=== PATIENT | female | born 1980 | race Caucasian/White ===

== ENCOUNTER → 2017-05-06 | Outpatient (CLI) | payer OTHER ==
[~2017-05-06] MED LIST: ALLEGRA60 MG PO; ATIVAN1 MG PO; BENADRYL25 MG PO; BROM-PSEUD-DM118 ML PO; CITALOPRAM HBR20 MG PO; CLARITIN10 MG PO; DEPAKOTE500 MG PO; DIVALPROEX SOD500 MG PO; FLUTICASONE PRO16 GM BOTH NARES; GEODON80 MG PO; INVEGA6 MG PO; LEVOCETIRIZINE D5 MG PO; LEVOTHROID,S0.125 MG PO; LEVOTHYROXINE150 MCG PO; MEDROXYPROGESTER5 MG PO; MORPHINE SULFAT30 M2 PO; NASAL & SINUS D30 MG PO; NYSTATIN-TRIAMC15 G1 TP; OXYCODONE HCL5 MG PO; PAIN RELIEF650 MG PO; PERMETHRIN60 GM TP; TRAMADOL HCL50 MG PO; TRAZODONE HCL150 MG PO; TRAZODONE HCL50 MG PO; VIBRAMYCIN100 MG PO; ZOLPIDEM TARTRAT5 MG PO
== END | disposition home or self-care (01) ==
DX: R13.10 Dysphagia, unspecified (principal)
CPT/HCPCS: 92611 GN; G8996 GN; G8997 GN; G8998 GN